=== PATIENT | male | born 1985 | race Hispanic/Latino ===

== ENCOUNTER 2017-10-10 00:57 | Emergency (ER) | payer MEDICAID ==
[2017-10-10 01:06] VITALS: RESP 20
[2017-10-10] MEDS ORDERED: Bacitracin 500 Units/gm Oint Foilpak UD TOP ONE (01:45)
[2017-10-10] MEDS ORDERED: Lidocaine 1% w Epi 1:100,000 Inj INJ ONE (01:45)
[2017-10-10] MEDS ORDERED: Lidocaine 2% MPF (5 ml) Inj ONE (02:26)
--- NOTE | 2017-10-10 02:46 | C.PDOC ---
History Of Present Illness <WyattIrvin - Last Filed: 10/10/17 02:44> <Cassie Burgos - Last Filed: 10/10/17 06:45> 31 years old male presents to ED for complaints of laceration to left hand that was sustained earlier today while opening a can. No change in sensation. ( Cassie Burgos) <WyattIrvin - Last Filed: 10/10/17 02:44> History Per: Patient History/Exam Limitations: no limitations Onset/Duration Of Symptoms: Hrs Current Symptoms Are (Timing): Still Present Location Of Injury: Right: Hand Quality Of Symptoms: denies: Painful, Itching, Swollen Recent travel outside of the [place]: No <Cassie Burgos - Last Filed: 10/10/17 06:45> Time Seen by Provider: 10/10/17 01:20 Chief Complaint (Nursing): Abnormal Skin Integrity Past Medical History - Social History Hx Alcohol Use: Yes Hx Substance Use: No - Immunization History Hx Tetanus Toxoid Vaccination: Yes Hx Influenza Vaccination: No Hx Pneumococcal Vaccination: No <WyattIrvin - Last Filed: 10/10/17 02:44> Reviewed: Historical Data, Nursing Documentation, Vital Signs - Medical History PMH: No Chronic Diseases Surgical History: No Surg Hx Family History: States: No Known Family Hx <Cassie Burgos - Last Filed: 10/10/17 06:45> Vital Signs: Last Vital Signs Temp 99 F 10/10/17 03:25 Pulse 966 H 10/10/17 03:25 Resp 20 10/10/17 03:25 BP 122/76 10/10/17 03:25 Pulse Ox 98 10/10/17 03:25 Review Of Systems Except As Marked, All Systems Reviewed And Found Negative. Skin: Positive for: Other <WyattVianneykarsten - Last Filed: 10/10/17 02:44> Except As Marked, All Systems Reviewed And Found Negative. Skin: Positive for: Other (2cm laceration to left hand) <Cassie Burgos - Last Filed: 10/10/17 06:45> Physical Exam - Physical Exam Appears: Well, Non-toxic, No Acute Distress Skin: No Rash, Other (2cm laceration to 2nd metacarpal) Head: Atraumatic, Normacephalic Eye(s): bilateral: Normal Inspection, EOMI Oral Mucosa: Moist Neck: Normal ROM, Supple Chest: Symmetrical Respiratory: No Accessory Muscle Use Extremity: Normal ROM, Capillary Refill (< 2 sec), No Deformity, No Swelling Pulses: Left Radial: Normal, Right Radial: Normal Neurological/Psych: Oriented x3, Normal Speech, Normal Motor (5/5 against resistance), Normal Sensation Gait: Steady <Cassie Burgos Filed: 10/10/17 06:45> ED Course And Treatment O2 Sat by Pulse Oximetry: 97 <Vianney Schneider Filed: 10/10/17 02:44> Pulse Ox Interpretation: Normal <Dragan Burgos Filed: 10/10/17 06:45> Laceration - Laceration Repair 2nd metacarpal of right hand Wound Length (In cm): 2 Description Of Wound: Irregular Wound Cleansed With: Betadine, Sterile Saline Anesthesia: Lidocaine 1% Wound Examination: Irrigated With Saline, No FB With Wound Exploration, No Tendon Injury With Wound Exploration Wound Closure: Suture (3) Suture Technique And Material Used: Nylon (3) Wound Complexity: Simple (Well tolerated) <Cassie Burgos Filed: 10/10/17 06:45> Disposition - Disposition Disposition Time: 02:44 <Irvin Schneider Filed: 10/10/17 02:44> <Cassie Burgos Filed: 10/10/17 06:45> - Disposition Referrals: Non [facility] Provider, [Primary Care Provider] - Disposition: HOME/ ROUTINE Condition: STABLE Additional Instructions: Wound check in 2 days. Suture removal in 7-10 days. Watch for signs of infection including redness, swelling, and discharge. 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 - Scribe Statement The provider has reviewed the documentation as recorded by the Scribe <MariellaantolinCassie Filed: 07/04/18 06:45> - Scribe Statement George Joseph All medical record entries made by the Scribe were at my direction and personally dictated by me. I have reviewed the chart and agree that the record accurately reflects my personal performance of the history, physical exam, medical decision making, and the department course for this patient. I have also personally directed, reviewed, and agree with the discharge instructions and disposition. (Cassie Burgos)
[2017-10-10 03:28] VITALS: BP 122/76; PULSE 966; TEMP 99; O2SAT 98
== END 2017-10-10 03:25 | disposition home or self-care (01) ==
LOC: SUPCPDRO 00:57 → C.ER 00:57
DX: S61.412A Laceration without foreign body of left hand, initial encounter (principal); W26.8XXA Contact with other sharp object(s), not elsewhere classified, initial encounter